=== PATIENT | male | born 1950 | race Caucasian/White ===

== ENCOUNTER → 2021-09-26 | Outpatient (CLI) | payer OTHER ==
[~2021-09-26] VITALS: Ht 25.4 cm; Wt 140.6 kg
== END | disposition home or self-care (01) ==
LOC: DTH 12:21
PROVIDERS: ATTEND Surgery
DX: Z71.3 Dietary counseling and surveillance (principal); E78.00 Pure hypercholesterolemia, unspecified; I10 Essential (primary) hypertension; R73.03 Prediabetes; E66.01 Morbid (severe) obesity due to excess calories; Z68.41 Body mass index [BMI] 40.0-44.9, adult
CPT/HCPCS: 97802

== ENCOUNTER 2021-10-31 05:54 | Day surgery (SDC) | payer OTHER ==
[~2021-10-31] VITALS: Ht 177.8 cm; Wt 142.9 kg
[~2021-10-31 05:54] MED LIST: ATOR40TA71 PO; LOSA100T58 PO; PANT40TA PO; TAMS-1 PO
[2021-10-31] MEDS ORDERED: 0.9%NACL 1000ML 1,000 ML IV ONE (06:11)
[2021-10-31] MEDS ORDERED: PROPOFOL 10 MG/ML 20ML VIAL IV ONE ×2 (08:30→08:54)
[2021-10-31] MEDS ORDERED: KETAMINE HCL 50MG/ML 10ML VIAL IJ ONE (08:31)
[2021-10-31] MEDS ORDERED: MIDAZOLAM HCL 1 MG/ML 2ML VIAL ONE (08:35)
[2021-10-31] MEDS ORDERED: LIDOCAINE HCL 1% 20 ML VIAL ONE (08:36)
[2021-10-31] MEDS ORDERED: GLYCOPYRROLATE 0.2 MG/ML 5 ML VIAL ONE (08:38)
[2021-10-31 08:51] VITALS: BP 119/64
[2021-10-31 08:56] VITALS: BP 113/68
[2021-10-31 09:01] VITALS: BP 124/64
== END 2021-10-31 09:40 | disposition home or self-care (01) ==
LOC: DAH 05:54
PROVIDERS: ATTEND Surgery
DX: K21.9 Gastro-esophageal reflux disease without esophagitis (principal); K29.70 Gastritis, unspecified, without bleeding; E66.01 Morbid (severe) obesity due to excess calories; I10 Essential (primary) hypertension; E78.5 Hyperlipidemia, unspecified; E66.9 Obesity, unspecified; Z87.891 Personal history of nicotine dependence; Z98.890 Other specified postprocedural states; Z82.3 Family history of stroke; Z88.0 Allergy status to penicillin; Z68.41 Body mass index [BMI] 40.0-44.9, adult
CPT/HCPCS: 43239; 71045; 87635; 88305; 88342; 93005; A4215; A4221; A4222; A4223; A4606; A4663; C9803; J2250; J2704; J3490 ×2; J7030; 99152

== ENCOUNTER → 2021-11-19 | Outpatient (CLI) | payer OTHER | LOC: DTH 12:48 → EDUNIT# 11-20 13:00 | PROVIDERS: ATTEND Surgery | DX: E66.01 Morbid (severe) obesity due to excess calories (principal); I10 Essential (primary) hypertension; E78.00 Pure hypercholesterolemia, unspecified; G47.33 Obstructive sleep apnea (adult) (pediatric); Z71.3 Dietary counseling and surveillance; Z68.41 Body mass index [BMI] 40.0-44.9, adult | CPT/HCPCS: 97803 ==

== ENCOUNTER 2022-02-08 21:08 | Emergency (ER) | payer OTHER ==
[~2022-02-08] VITALS: Ht 180.3 cm; Wt 127.0 kg
[2022-02-08 21:10] VITALS: BP 116/98
[2022-02-08 21:55] LABS: BASOPHILS % (AUTO) 0.5 % (0.0-5.0); EOSINOPHILS % (AUTO) 0.6 % (0.0-8.0); HEMATOCRIT 45.8 % (42-54); LYMPHOCYTES % (AUTO) 18.2 % (21.0-51.0); MEAN CORPUSCULAR HEMOGLOBIN 29.5 pg (27.0-33.0); MEAN CORPUSCULAR HGB CONC 33.6 g/dL (32.0-36.0); MEAN CORPUSCULAR VOLUME 87.7 fL (79-99); MONOCYTES % (AUTO) 10.9 % (3.0-13.0); NEUTROPHILS % (AUTO) 69.6 % (40.0-77.0); PLATELET COUNT (AUTO) 221 K/uL (130-400); RED BLOOD CELL COUNT(AUTO) 5.22 MIL/uL (4.50-6.20); RED CELL DISTRIBUTION WIDTH 13.2 % (11.0-15.5); WHITE BLOOD COUNT (AUTO) 6.6 K/uL (4.8-10.8)
[2022-02-08] MEDS ORDERED: ONDANSETRON 4MG INJ IVP ONE (22:00)
[2022-02-08] MEDS ORDERED: 0.9%NACL 1000ML 1,000 ML IV SCH (22:00)
[2022-02-08 22:06] LABS: CREATININE 0.8 mg/dL (0.5-1.5)
[2022-02-08 22:16] LABS: ALBUMIN 4.2 g/dL (3.5-5.0)
== END 2022-02-08 22:55 | disposition home or self-care (01) ==
LOC: EDH 21:08
DX: K52.9 Noninfective gastroenteritis and colitis, unspecified (principal); I10 Essential (primary) hypertension; Z88.0 Allergy status to penicillin; Z79.899 Other long term (current) drug therapy; Z98.890 Other specified postprocedural states
CPT/HCPCS: 36415; 80053; 83690; 84484; 85025